=== PATIENT | male | born 1990 | race African-American/Black ===

== ENCOUNTER 2016-09-15 17:01 | Inpatient (IN) | payer OTHER ==
[~2016-09-15] VITALS: Ht 170.2 cm; Wt 70.1 kg
[2016-09-15 17:30] LABS: HEMATOCRIT 39.5 % (38.0-50.0); MCH 21.6 PG (29.0-34.0); MCHC 32.4 G/DL (30.0-36.0); MCV 66.7 FL (86-99); MEAN PLAT.VOLUME 11.1 uM^3 (9.0-12.4); PLATELET COUNT 122 K/uL (156-360); RBC DIS.WIDTH-CV 14.9 % (11.8-14.6); RBC DIS.WIDTH-SD 35.9 % (39-53); RED BLOOD COUNT 5.92 M/uL (4.00-5.50)
[2016-09-15 17:31] LABS: DELETE MACHINE DIFF? YES; WHITE BLOOD COUNT 0.4 K/uL (4.1-10.2)
[2016-09-15 17:33] LABS: CHLORIDE 93 mEq/L (99-109); POTASSIUM 3.9 mEq/L (3.7-5.4); SODIUM 132 mEq/L (136-147)
[2016-09-15 17:36] LABS: GLUCOSE 186 mg/dL (70-99)
[2016-09-15 17:37] LABS: ANION GAP 18 MEQ/L (2-14)
[2016-09-15 17:38] LABS: TOTAL BILIRUBIN 0.6 mg/dL (0.0-1.0)
[2016-09-15 17:39] LABS: ALKALINE PHOSPHATASE 26 IU/L (3-129)
[2016-09-15 17:40] LABS: UREA NITROGEN (BUN) 35 mg/dL (9-23)
[2016-09-15 17:41] LABS: BASE EXCESS -4.6 mEq/L (-3 to +3); BICARBONATE 20.3 mEq/L (22-26); CARBOXY HGB 1.8 % (0-5); DEVICE NRBM; FI02 100 %; METHEMOGLOBIN 0.7 % (0-1.5); O2 FLOW 15 L/MIN; PCO2 36 mm Hg (35-45); SITE RF; pH 7.36 (7.35-7.45)
[2016-09-15 17:41] LABS: GFR ESTIMATE (CALCULATED) 41 mL/min/
[2016-09-15 17:42] LABS: TROP-I INTERPRETATION NEGATIVE; TROPONIN-I 0.04 ng/mL (0.0-0.30)
[2016-09-15 17:42] LABS: PO2 46 mm Hg (80-100); TOTAL RESP RATE 36 resp/min
[2016-09-15 18:02] LABS: INTERNAL CONTROL VALID? YES; MONOSPOT (MONONUCLEOSIS SEROL) NEGATIVE
[2016-09-15 19:02] LABS: BASE EXCESS -7.4 mEq/L (-3 to +3); CARBOXY HGB 1.5 % (0-5); METHEMOGLOBIN 0.9 % (0-1.5)
[2016-09-15 19:03] LABS: ABS NEUTROPHIL COUNT 0.06; ANISOCYTOSIS 2+; EOSINOPHIL ABS CT 0; OVALOCYTES 2+; PLAT.SUFFICIENCY ADEQUATE; SCHISTOCYTES 1+; TARGET CELLS RARE; TEAR DROP CELLS OCC; USER ID WCD
[2016-09-15 19:05] LABS: PCO2 55 mm Hg (35-45); PO2 59 mm Hg (80-100)
[2016-09-15 19:06] LABS: COMMENTS - BLOOD GASES C+; DEVICE VENT; FI02 100 %; MECHANICAL RATE 20 resp/min; MODE AC; PEEP 10 CM/H20; SITE RR; TIDAL VOLUME 550 ML; TOTAL RESP RATE 20 resp/min; pH 7.19 (7.35-7.45)
[2016-09-15] MEDS ORDERED: TYLENOL REGULA325 MG PO (19:21)
[2016-09-15] MEDS ORDERED: MUCINEX600 MG PO (19:22)
[2016-09-15] MEDS ORDERED: THERAGRAN1 TABLET PO (19:25)
[2016-09-15 20:18] LABS: ADD MIUA? YES; BILIRUBIN NEGATIVE; BLOOD SMALL; GLUCOSE (STRIP) NEGATIVE; KETONES NEGATIVE; LEUKOCYTES NEGATIVE; NITRITE NEGATIVE; PROTEIN (STRIP) 100; SPECIFIC GRAVITY 1.017 (1.000-1.030); UROBILINOGEN 0.2 MG/DL (0.2-1.0)
[2016-09-15 20:19] LABS: COLOR YELLOW ((YELLOW))
[2016-09-15 20:22] LABS: BACTERIA RARE /HPF; EPITHELIAL CELLS RARE /HPF; MUCUS TRACE /LPF; RED BLOOD CELLS 0-5 /HPF (0-5); UCUL ADDED? NO; WHITE BLOOD CELLS 0-5 /HPF (0-5)
[2016-09-15 20:23] LABS: AMORPHOUS PHOSPHATE CRYSTALS FEW; CASTS PRESENT /LPF; CRYSTALS PRESENT; HYALINE CASTS 20-30 /LPF
[2016-09-15 20:36] LABS: INFLUENZA A VIRAL ANTIGEN POSITIVE; INFLUENZA B VIRAL ANTIGEN NEGATIVE
[2016-09-15 21:25] VITALS: BP 80/56
[2016-09-15 21:30] VITALS: BP 82/34
[2016-09-15 22:00] VITALS: BP 82/34
[2016-09-15 22:30] VITALS: BP 79/40
[2016-09-15 23:00] VITALS: BP 83/45
[2016-09-15 23:30] VITALS: BP 94/57
[2016-09-15 23:33] LABS: BICARBONATE 20.2 mEq/L (22-26); CARBOXY HGB 1.6 % (0-5); METHEMOGLOBIN 1.5 % (0-1.5)
[2016-09-15 23:34] LABS: DEVICE 840; FI02 100 %; INSPIRATION TIME 0.6 seconds; MECHANICAL RATE 18 resp/min; MODE BILEVEL; PCO2 46 mm Hg (35-45); PEEP 0 CM/H20; PO2 38 mm Hg (80-100); PRESSURE CONTROL VENTILATION 24 CM H20; SITE LR; pH 7.25 (7.35-7.45)
[2016-09-15 23:38] LABS: METH RESISTANT S AUREUS PCR POSITIVE (NEGATIVE)
[2016-09-15 23:44] LABS: PROBE CHECK PASS
[2016-09-16 00:30] VITALS: BP 84/42
[2016-09-16 01:16] LABS: BASE EXCESS -9.7 mEq/L (-3 to +3); BICARBONATE 21.2 mEq/L (22-26); CARBOXY HGB 0.8 % (0-5); METHEMOGLOBIN 1.4 % (0-1.5)
[2016-09-16 01:21] LABS: PCO2 70 mm Hg (35-45)
[2016-09-16 01:22] LABS: COMMENTS - BLOOD GASES C+; DEVICE 840; FI02 100 %; INSPIRATION TIME 0.6 seconds; MECHANICAL RATE 14 resp/min; MODE BILEVEL; PEEP 0 CM/H20; PO2 29 mm Hg (80-100); PRES. SUPPORT 30 CM/H2O; PRESSURE CONTROL VENTILATION 24 CM H20; SITE A-LINE; TOTAL RESP RATE 14 resp/min
[2016-09-16 01:23] LABS: pH 7.09 (7.35-7.45)
[2016-09-16 01:30] VITALS: BP 129/53
[2016-09-16 01:58] LABS: BASE EXCESS -13.6 mEq/L (-3 to +3); BICARBONATE 17.8 mEq/L (22-26); CARBOXY HGB 0.7 % (0-5); METHEMOGLOBIN 1.5 % (0-1.5); PCO2 66 mm Hg (35-45)
[2016-09-16 01:59] LABS: COMMENTS - BLOOD GASES C+; DEVICE VENT; FI02 100 %; INSPIRATION TIME 0.6 seconds; MECHANICAL RATE 18 resp/min; MODE BILEVEL; PEEP 0 CM/H20; PO2 28 mm Hg (80-100); PRES. SUPPORT 30 CM/H2O; PRESSURE CONTROL VENTILATION 28 CM H20; SITE ALINE; TOTAL RESP RATE 18 resp/min; pH 7.04 (7.35-7.45)
[2016-09-16 04:30] VITALS: BP 147/26
[2016-09-16 05:06] LABS: BASE EXCESS -12.4 mEq/L (-3 to +3); BICARBONATE 19.1 mEq/L (22-26); CARBOXY HGB 1.6 % (0-5); METHEMOGLOBIN 1.4 % (0-1.5); PCO2 74 mm Hg (35-45)
[2016-09-16 05:07] LABS: COMMENTS - BLOOD GASES C+; DEVICE 840; FI02 100 %; MECHANICAL RATE 22 resp/min; MODE AC; PEEP 15 CM/H20; PO2 53 mm Hg (80-100); SITE A-LINE; TOTAL RESP RATE 22 resp/min
[2016-09-16 06:04] LABS: TIDAL VOLUME 400 ML
[2016-09-16 06:05] LABS: pH 7.02 (7.35-7.45)
[2016-09-16 06:24] LABS: ANION GAP 24 MEQ/L (2-14); CHLORIDE 106 MEQ/L (99-109); GFR ESTIMATE (CALCULATED) 50 mL/min/; SAMPLE HEMOLYSIS CHECK 1; SAMPLE ICTERIC CHECK 0; SAMPLE LIPEMIA CHECK 0; UREA NITROGEN (BUN) 31 mg/dL (9-23)
[2016-09-16 06:37] LABS: GLUCOSE 19 mg/dL (70-99); POTASSIUM 6.3 MEQ/L (3.7-5.4); SODIUM 164 MEQ/L (136-147)
== END 2016-09-16 10:34 | DRG 974 ==
LOC: EDBD 17:01 → EME 17:01 → 4WEST 18:37 → EDOF 18:37 → 4WEST 21:28
PROVIDERS: Anesthesiology; Emergency Medicine; Internal Medicine Pulmonary Disease
PROC: 5A1935Z Respiratory Ventilation, Less than 24 Consecutive Hours (ICD-10-PCS; principal; 2016-09-15)
PROC: 0CJS8ZZ Inspection of Larynx, Via Natural or Artificial Opening Endoscopic (ICD-10-PCS; principal; 2016-09-15)
PROC: 0BH17EZ Insertion of Endotracheal Airway into Trachea, Via Natural or Artificial Opening (ICD-10-PCS; principal; 2016-09-15)
PROC: 03HY32Z Insertion of Monitoring Device into Upper Artery, Percutaneous Approach (ICD-10-PCS; 2016-09-16)
PROC: 02HV33Z Insertion of Infusion Device into Superior Vena Cava, Percutaneous Approach (ICD-10-PCS; 2016-09-16)
PROC: 5A12012 Performance of Cardiac Output, Single, Manual (ICD-10-PCS; 2016-09-16)
PROC: 5A12012 Performance of Cardiac Output, Single, Manual (ICD-10-PCS; 2016-09-16)
PROC: 5A12012 Performance of Cardiac Output, Single, Manual (ICD-10-PCS; 2016-09-16)
DX: B20 Human immunodeficiency virus [HIV] disease (principal); B59 Pneumocystosis; J96.01 Acute respiratory failure with hypoxia; I46.8 Cardiac arrest due to other underlying condition; J10.08 Influenza due to other identified influenza virus with other specified pneumonia; A41.9 Sepsis, unspecified organism; R65.20 Severe sepsis without septic shock; R04.2 Hemoptysis; F17.200 Nicotine dependence, unspecified, uncomplicated; Z78.1 Physical restraint status
CPT/HCPCS: 36600; 71010; 80048; 80053; 81003; 82803; 83605; 84484; 85009; 85025; 86308; 87040; 87070; 87077; 87147; 87186; 87205; 87502; 87641; 87801; 93005; 94002; 99281; 99285; J0171; J1885; J2060; J2370; J2543; J2704; J2920; J2930; J3370; J7030; J7050; J7060; J7070; J7120; S0039